=== PATIENT | male | born 1995 | race Caucasian/White ===

== ENCOUNTER 2021-06-12 10:17 | Emergency (ER) | payer BC, SELFPAY ==
--- NOTE | 2021-06-12 11:34 | HMH.EDUTC ---
[facility] [place] Disposition Clinical Impression: Strep throat, Exposure to COVID-19 virus Disposition: Home, Self-Care Condition on Discharge: Good Instructions: DI for Strep Throat, Preventing the Spread of Coronavirus Discharge Instructions Additional Instructions: Drink plenty of fluids. Take tylenol or ibuprofen for pain or fever. Take the medications as directed. Follow up with your regular doctor. GO TO THE ER FOR ANY WORSENING SYMPTOMS Throw your tooth brush away and get a new one. Quarantine until you know the results of your covid-19 test. If it is positive, the health department should call you and give you further instructions about your length of Quarantine and other thing. Prescriptions: Brompheniramine/Pseudoephed/Dm [Bromfed Dm Cough Syrup] 5 ml PO Q6HP PRN #240 syrup PRN Reason: Cough Transmission Status: Received by [facility] Ondansetron [Zofran 4mg ODT] 4 mg PO Q8HP PRN #12 tab.rapdis PRN Reason: Nausea Transmission Status: Received by [facility] Amoxicillin [Amoxicillin 500mg Tab] 500 mg PO TID 10 Days #30 tab Transmission Status: Received by [facility] Referrals: Provider,Referral, MD [Primary Care Provider] - Forms: Work/School Release Time of Disposition: 11:49 Medical Decision Making - Medical Records Medical records reviewed: No: I reviewed the patient's medical records. - Ham Inquiry Pt receiving controlled substance: No Vital Signs: 06/12/21 11:39 06/12/21 12:23 Temperature 98 F 98.1 F Temperature Source Oral Pulse Rate 92 H Pulse Rate [Left] 89 Respiratory Rate 16 14 Blood Pressure 121/86 Blood Pressure [Right Arm] 127/85 Blood Pressure Mean [Right Arm] 99 02 Sat by Pulse Oximetry 100 - Lab Data Lab results reviewed: Yes: I reviewed the patient's lab results. Lab Results 06/12/21 11:44: Strep Scn Rapid Clinic Positive A [facility] [place] HPI - General Stated complaint: covid test Time Seen by Provider: 06/12/21 11:34 - History of Present Illness Provider Complaint: He states that he has felt bad for the past 2 days. He has had sore throat, chilling, a dry cough. He has not been vaccinated against covid. He works at [employer]. - Related Data Previous Rx's Medication Instructions Recorded Amoxicillin [Amoxicillin 500mg Tab] 500 mg PO TID 10 Days #30 tab 06/12/21 Brompheniramine/Pseudoephed/Dm 5 ml PO Q6HP PRN #240 syrup 06/12/21 [Bromfed Dm Cough Syrup] Ondansetron [Zofran 4mg ODT] 4 mg PO Q8HP PRN #12 tab.rapdis 06/12/21 Allergies Allergy/AdvReac Type Severity Reaction Status Date / Time No Known Allergies Allergy Verified 06/12/21 11:42 [facility] History - Hepatitis A Screen Attestation statement:: This patient has been screened for Hepatitis A risk factors. I have reviewed the patient's past medical history: Yes ROS Obtained: Yes All systems reviewed & no additional complaints - Constitutional Constitutional: Reports chills, Reports fever(s) - Eyes Eyes: Denies eye discharge - ENT Ears, Nose, Mouth, and Throat: Reports as per HPI - Cardiovascular Cardiovascular: Denies chest pain - Respiratory Respiratory: Reports chest congestion, Reports cough, Denies dyspnea, Denies stridor, Denies wheezing Physical Exam - General General appearance: alert, in no apparent distress - Head Head exam: atraumatic, normocephalic, normal inspection - Eye Eye exam: Present: normal appearance, PERRL, EOMI - ENT ENT exam: Present: mucous membranes moist, normal external ear exam - Expanded ENT Exam TM/Canal exam: Bilateral TM: erythema, bulging Mouth exam: Present: normal external inspection Teeth exam: Present: normal inspection Throat exam: Present: tonsillar erythema, tonsillomegaly, tonsillar exudate. Absent: R peritonsillar mass, L peritonsillar mass, muffled voice - Neck Neck exam: Present: normal inspection, full ROM, trachea midline. Absent: meningismus, lymphadenopathy
[2021-06-12 11:39] VITALS: BP 127/85; PULSE 89; RESP 16; TEMP 36.6; O2SAT 100; BMI 34.4
[2021-06-12 11:46] LABS: UTC Strep Screen (Rapid) Positive (Negative)
[2021-06-12 12:23] VITALS: BP 121/86; PULSE 92; RESP 14; TEMP 36.7
--- NOTE | 2021-06-12 15:25 | PC.NURSE ---
notified pt of positive covid test results, to quarantine for 10 days and the health dept should be contacting him
== END 2021-06-12 12:35 | disposition home or self-care (01) ==
PROVIDERS: Emergency Provider Nurse Practitioner Family
DX: U07.1 COVID-19 (principal); J02.0 Streptococcal pharyngitis
CPT/HCPCS: 87880; 99203; G0463; U0003

== ENCOUNTER 2022-07-02 10:21 | Emergency (ER) | payer BC, SELFPAY ==
[2022-07-02 11:05] VITALS: BP 170/108; PULSE 91; RESP 20; TEMP 37.1; O2SAT 99; BMI 35.6
[2022-07-02 11:25] LABS: UTC Strep Screen (Rapid) Negative (Negative)
--- NOTE | 2022-07-02 11:28 | EXP.UTC ---
Discharge Plan Disposition Patient Disposition: Home, Self-Care Condition: Good Prescriptions Prescriptions: New azithromycin [Zithromax Z-Rafael] 250 mg tablet See Rx Instructions .ROUTE .COMPLEX Qty: 6 0RF Rx Instructions: For 250 mg dose pack: take 500 mg today (day 1), then 250 mg for 4 days (days 2-5) methylprednisolone [Medrol (Rafael)] 4 mg tablets,dose pack See Rx Instructions .Route .COMPLEX 6 Days Qty: 21 0RF Rx Instructions: taper pack; Referrals Follow up/Referrals: Provider,Referral, MD [Primary Care Provider] - See instructions Clinical Impressions Clinical Impression: Pharyngitis Stand Alone Forms Stand Alone Forms: Work/School Release Instructions Patient Instructions: Sore Throat Discharge ED Provider: Cindy Thomason [facility] General Stated complaint: Sore throat Mode of Arrival: Ambulatory Source of Information: Patient Limitations: No Limitations Time Seen by Provider: 07/02/22 11:28 Description of Symptoms (Recalled from Triage Doc. by RN): PATIENT C/O SORE THROAT THAT STARTED OVER THE WEEKEND HEENT Symptoms (Recalled from RN notes): Yes Resp Symptoms (Recalled from RN notes): No Skin Symptoms (Recalled from RN notes): No MS Symptoms (Recalled from RN notes): No Functional Status (Recalled from RN notes): WNL History of Present Illness Provider Complaint: Patient states that over the weekend he started having sore throat and having blisters on the back of throat States that it has continued to get worse so today he came in to get it checked Related Data Previous Rx's Medication Instructions Recorded azithromycin 250 mg tablet See Rx Instructions PO .COMPLEX #6 07/02/22 (Zithromax Z-Rafael) tabs methylprednisolone 4 mg tablets in See Rx Instructions .Route 07/02/22 a dose pack (Medrol (Rafael)) .COMPLEX 6 days #21 tabs Allergies Allergy/AdvReac Type Severity Reaction Status Date / Time No Known Allergies Allergy Verified 06/12/21 11:42 Worker's Comp Is this a Worker's Comp case?: No [facility] Medical History (Updated 07/02/22 @ 11:34 by Cindy Thomason, [employer]) No significant past medical history Social History (Updated 07/02/22 @ 11:17 by Colleen Britton RN) Smoking Status: Unknown if ever smoked alcohol intake: never current occupational status: other Travel in the last 8 weeks: None ROS Obtained: Yes All systems reviewed & no additional complaints except as documented and Yes Systems reviewed as appropriate & no additional complaints except as documented ENT Ears, Nose, Mouth, and Throat: Reports system reviewed and no additional complaints, except as documented, Reports as per HPI and Reports sore throat Cardiovascular Cardiovascular: Reports system reviewed and no additional complaints, except as documented and Reports as per HPI Respiratory Respiratory: Reports system reviewed and no additional complaints, except as documented and Reports as per HPI Gastrointestinal Gastrointestingal: Reports system reviewed and no additional complaints, except as documented and as per HPI Physical Exam General General appearance: alert and in no apparent distress Expanded ENT Exam Throat exam: Present tonsillar erythema (with white blister like lesions noted) Respiratory Respiratory exam: Present normal lung sounds bilaterally and respiratory distress Cardiovascular Cardiovascular exam: Present regular rate, normal rhythm and normal heart sounds Neurological Exam Neurological exam: Present alert, oriented X3 and normal gait Medical Decision Making Ham Inquiry Pt receiving controlled substance: No Ham was queried for this patient: No Vital Signs: 07/02/22 11:05 Temperature 98.8 F Temperature Source Oral Pulse Rate [Left Brachial] 91 H Respiratory Rate 20 Blood Pressure [Left Arm] 170/108 H Blood Pressure Mean [Left Arm] 128 Blood Pressure Source [Left Arm] Automatic Cuff Blood Pressure Position [Left Arm] Sitting 02 Sat by Puls
[2022-07-02 11:36] VITALS: BP 170/108; PULSE 91; RESP 20; TEMP 37.1; O2SAT 99
== END 2022-07-02 11:40 | disposition home or self-care (01) ==
PROVIDERS: Emergency Provider Nurse Practitioner
DX: J02.9 Acute pharyngitis, unspecified (principal)
CPT/HCPCS: 87880; 99212; G0463

== ENCOUNTER 2025-04-02 14:10 | Emergency (ER) | payer BC, SELFPAY ==
[2025-04-02 14:20] VITALS: BP 165/88; PULSE 95; RESP 18; TEMP 36.9; O2SAT 99; BMI 38.5
--- NOTE | 2025-04-02 14:33 | XR_ITS ---
PROCEDURE INFORMATION: Exam: XR Right Ankle Exam date and time: 04/02/2025 2:40 PM Age: 30 years old Clinical indication: Injury or trauma; Other: Twisted R foot and ankle TECHNIQUE: Imaging protocol: Radiologic exam of the right ankle. Views: 3 or more views. COMPARISON: CR Foot R 04/02/2025 2:38 PM FINDINGS: Bones/joints: Normal. No acute fracture identified. Soft tissues: Normal. IMPRESSION: No acute findings.
--- NOTE | 2025-04-02 14:33 | XR_ITS ---
PROCEDURE INFORMATION: Exam: XR Right Foot Exam date and time: 04/02/2025 2:38 PM Age: 30 years old Clinical indication: Injury or trauma; Other: Twisted R foot and ankle TECHNIQUE: Imaging protocol: Radiologic exam of the right foot. Views: 3 or more views. COMPARISON: No relevant prior studies available. FINDINGS: Bones/joints: Normal. No acute fracture identified. Soft tissues: Normal. IMPRESSION: No acute findings.
--- NOTE | 2025-04-02 14:34 | ED_ITS ---
<Statement entered by Kat Tesfaye DO - 04/02/25 15:28> I was consulted by the DIMA, and we discussed the complexity of the problems being addressed. I approved the treatment and management plan for this patient's care in the emergency department, thus performing a substantive portion of the medical decision making. Kat Tesfaye DO Discharge Plan Disposition Patient Disposition: Home, Self-Care Prescriptions Prescriptions: No Action azithromycin [Zithromax Z-Rafael] 250 mg tablet See Rx Instructions .ROUTE .COMPLEX Qty: 6 0RF Rx Instructions: For 250 mg dose pack: take 500 mg today (day 1), then 250 mg for 4 days (days 2-5) methylprednisolone [Medrol (Rafael)] 4 mg tablets,dose pack See Rx Instructions .Route .COMPLEX 6 Days Qty: 21 0RF Rx Instructions: taper pack; Referrals Follow up/Referrals: Provider,Referral, MD [Primary Care Provider, Medical] - See instructions Activity Restrictions/Add. Instructions Additional Instructions/Restrictions: Today you were evaluated in the emergency department for right ankle and foot injury. As of discharge, your final read on the x-rays is not back. I reviewed the x-rays myself, I do not see any acute fracture. I believe you have sprained your right ankle. Please continue using the brace that you have for the next 5 days. You may ice the area, continue to take acetaminophen and ibuprofen [id number] as directed. Please follow-up with your PCP within 1 week. Please return to the ED for any worsening of your condition. I will call you as soon as the x-ray report is final today. Clinical Impressions Clinical Impression: Injury of ankle, right Qualifiers: Encounter type: initial encounter Qualified Code(s): S99.911A - Unspecified injury of right ankle, initial encounter Stand Alone Forms Stand Alone Forms: Work/School Release Instructions Patient Instructions: DI for Ankle Sprain Print Language Print Language: Irish Discharge ED Provider: Kat Tesfaye General Adult HPI General Chief complaint: PAIN Stated complaint: sharp pain in right foot Time Seen by Provider: 04/02/25 14:33 Mode of Arrival: Ambulatory Source of Information: Patient Description of Symptoms (Recalled from ER Triage Doc. by RN): Pt presents for evaluation of right ankle pain. Pt states he rolled his ankle on Thursday History of Present Illness HPI narrative: Patient is a 30-year-old male with no significant PMH who presents to the ED for complaints of right foot and ankle pain. Patient states that 3 days ago he twisted his right foot while walking, did not fall, did not hit his head. Patient states he has been using acetaminophen, ibuprofen, ice packs on the right ankle which has helped with pain and swelling. Related Data Previous Rx's ?Medication ?Instructions ?Recorded azithromycin 250 mg tablet See Rx Instructions PO .COM PLEX #6 07/02/22 (Zithromax Z-Rafael) tabs methylprednisolone 4 mg tablets in See Rx Instructions .Route 07/02/22 a dose pack (Medrol (Rafael)) .COMPLEX 6 days #21 tabs Allergies Allergy/AdvReac Type Severity Reaction Status Date / Time No Known Allergies Allergy Verified 06/12/21 11:42 [facility] Disclaimer: The information contained in this section may have been updated after the patient was seen, as this information can be updated by other users. Medical History (Updated 04/02/25 @ 16:22 by Yaneth Jovel APRN) No significant past medical history Social History (Updated 07/02/22 @ 11:34 by Cindy Thomason APRN) Smoking Status: Former smoker alcohol intake: never current occupational status: other Travel in the last 8 weeks?: None Have you lived/traveled outside [place] in past 30 days?: No Contact w/someone who lives/traveled outside [place] past 30 days?: No Exposure to someone with infectious disease in past 14 days?: No Do you have a fever (greater than 100.4 F or 38 C)?: No Have you tested positive for COVID-19?: No Exposed to someone with COVID-19 in past 14 days?: No Do you have a sore throat?: No Do you have a cough?: No Do you have any weakness?: No Do you have any diarrhea?: No Are you experiencing any unusual bleeding?: No Do you have any muscle aches/pain?: No Do you have any abdominal pain?: No Are you experiencing loss of taste or smell?: No ROS Obtained: Yes Systems reviewed as appropriate & no additional complaints except as documented Physical Exam General General appearance: alert and in no apparent distress Head Head exam: atraumatic and normocephalic Neck Neck exam: Present normal inspection and full ROM Chest Chest inspection: Present normal inspection Respiratory Respiratory exam: Present respiratory distress Cardiovascular Cardiovascular exam: Present regular rate Extremities Exam Extremities exam: Present full ROM, tenderness (R foot medial aspect tenderness upon palpation ) and normal capillary refill; Absent calf tenderness or cyanosis Neurological Exam Neurological exam: Present alert, oriented X3 and normal gait; Absent motor sensory deficit Psychiatric Psychiatric exam: Present normal affect Skin Skin exam: Present warm and dry Medical Decision Making Medical Records Screening: Per USPSTF and CDC recommendations, given the prevalence of disease in our region, it is our hospital?s policy to screen for HIV and viral Hepatitis for all patients aged 18 and over and those with ongoing risk factors. Ham Inquiry Pt receiving controlled substance: No Vital Signs: 04/02/25 14:20 04/02/25 16:33 Temperature 98.5 F 98.3 F Temperature Source Oral Oral Pulse Rate 73 Pulse Rate [Right] 95 H Respiratory Rate 18 18 Blood Pressure 144/84 H Blood Pressure [Right Arm] 165/88 H Blood Pressure Mean [Right Arm] 113 02 Sat by Pulse Oximetry 99 Oxygen Delivery Method Room Air Orders (Tests/Meds): ORDERS Category Date Time Status Ankle XR -Right minimum 3 Views [XR ankle RT min 3V] Exams 04/02/25 14:33 Completed Stat Foot XR right minimum 3 views [XR foot RT min 3V] Stat Exams 04/02/25 14:33 Completed Medical Decision Narrative: In summary, patient is a 30-year-old male with no significant PMHx who presents to the ED for complaints of right foot and ankle pain. Patient states that 3 days ago he twisted his right foot while walking, did not fall, did not hit his head. Patient states he has been using acetaminophen, ibuprofen, ice packs on the right ankle which has helped with pain and swelling. Patient states he has been ambulatory since twisting the right foot and ankle. He states that his pain is worse when he is bearing weight. Denies any previous injury of joints. Denies fever, chills, body aches, decreased sensation, numbness, tingling. Differential diagnosis include fracture, malalignment, ligamentous injury, among others. Upon initial evaluation patient has elevated blood pressure, afebrile. Physical exam remarkable for mild edema of right foot, medial aspect. Medial aspect of foot tenderness noted upon palpation. Neurovascular status intact. Patient has full ROM. Patient states he took Excedrin prior to arrival for pain, does not want any additional medication while in the ED. Discussed with him that we will obtain imaging of the right foot and ankle Final read of the foot and ankle unremarkable for any acute fracture. Discussed with patient he can continue to wear the brace that he is currently wearing, we discussed taking acetaminophen and ibuprofen [id number] for symptomatic relief. Work note provided. Discussed with patient to follow-up with PCP within 1 week. We discussed return precautions to the ED and patient verbalized understanding. Critical Care Critical Care Time Critical Care Time: No
[2025-04-02 16:33] VITALS: BP 144/84; PULSE 73; RESP 18; TEMP 36.8
== END 2025-04-02 16:35 | disposition home or self-care (01) ==
PROVIDERS: Emergency Provider Emergency Medicine
DX: S99.911A Unspecified injury of right ankle, initial encounter (principal); X50.1XXA Overexertion from prolonged static or awkward postures, initial encounter
CPT/HCPCS: 73610; 73630; 99283